=== PATIENT | female | born 1985 | race Caucasian/White ===

== ENCOUNTER 2016-11-01 16:51 | Emergency (ER) | payer MEDICAID ==
[~2016-11-01] VITALS: Ht 160 cm; Wt 44.5 kg
[~2016-11-01 16:51] MED LIST: DOCU100C37 PO; HYDR-2997 PO; IBP800T PO; IBUP-1780 PO; OXYC-465 PO
--- OUTSIDE RECORDS SUMMARY | 2016-11-01 16:55 | XMS REPORT ---
Author Author SARAN ARANDA [facility] Address [address] [place] [address] Care Team Providers Care Pulling Machine Operator Name Role Phone SARAN ARANDA Unavailable PROBLEMS Type Condition ICD9-CM Code [id number] Code Onset Dates Condition Status SNOMED Code Problem Surveillance of previously prescribed intrauterine contraceptive device V25.42 Active 002869899782981 Problem Rash and other nonspecific skin eruption 782.1 Active 657478814 Problem Moderate dysplasia of cervix 622.12 Active 901649180 Problem Screening examination for venereal disease V74.5 Active 764402986 Problem Screening for malignant neoplasm of the cervix V76.2 Active 868875989 Problem Unspecified vaginitis and vulvovaginitis 616.10 Active 065786217 Problem Cervical motion tenderness N94.9 Active 575510194 Problem PID (acute pelvic inflammatory disease) N73.0 Active 769674802 Problem Papanicolaou smear of cervix with high grade squamous intraepithelial lesion (HGSIL) 795.04 Active 371076037 Problem Unspecified pruritic disorder 698.9 Active 827059185 Problem Counseling on substance use and abuse V65.42 Active 071758572 Problem Nondependent tobacco use disorder 305.1 Active 006946539 ALLERGIES Substance Reaction Event Type Date Status Hydrocodone-Acetaminophen Unknown Drug Allergy Jan, Active Morphine Unknown Drug Allergy Jan, Active SOCIAL HISTORY No smoking Hx information available PLAN OF CARE VITAL SIGNS Height 62 in 2016-02-06 Weight 100.2 lbs 2016-02-06 Temperature 97.8 degrees Fahrenheit 2016-02-06 Heart Rate 70 bpm 2016-02-06 Respiratory Rate 18 2016-02-06 BMI 18.32 kg/m2 2016-02-06 Blood pressure systolic 106 mmHg 2016-02-06 Blood pressure diastolic 66 mmHg 2016-02-06 MEDICATIONS Medication Instructions Dosage Frequency Start Date End Date Duration Status Tramadol HCl 50 mg Orally every 6 hrs 1 tablet as needed 6h Jan, Active Bactrim DS 800-160 MG Orally Twice a day, voucher 1 tablet Jan, Jan, 10 day(s) Active RESULTS Name Result Date Reference Range UA LONG DIP (IN HOUSE) 2016-02-06 Lot # [id number] Exp date 2017 Clarity clear Color yellow Odor none GLU negative BETZAIDA negative KET negative SG 1.020 BLO 2+ pH 6.5 Protein 1+ URO 0.2 NIT negative ROBEL 1+ Lot # [id number] Exp date 2017 03 PROCEDURES Procedure Date Ordered Related Diagnosis Body Site URINALYSIS, AUTO, W/O SCOPE Feb 06, 2016 TORADOL (IM) 60 MG/2ML (UP TO 15 MG) Feb 06, 2016 Office Visit, Est Pt., Level 3 Feb 06, 2016 THER/PROPH/DIAG INJ, SC/IM Feb 06, 2016 IMMUNIZATIONS Vaccine Route Administration Date Status TORADOL (IM) 60 MG/2ML (UP TO 15 MG) IM Intramuscular Feb 06, 2016 Administered
[2016-11-01 17:03] VITALS: BP 121/80
--- NOTE | 2016-11-01 17:14 | ED General ---
General Chief Complaint: General Problems/Pain Stated Complaint: DEHRYDRATION Nursing Triage Note: AMB TO ROOM WITH PER EMS HAS BEEN WALKING AND THINKS SHE MAY BE DEHDRATION. PATIENT NOT WANTING IV STARTED ON ADMIT TO ROOM. Source of Information: Patient, EMS Exam Limitations: No Limitations History of Present Illness Time Seen by Provider: 17:00 Initial Comments 30 yo female patient presents to the ED via [facility] with c/o dehydration and sunburn. patient states she was walking from [place] to [place] when she got really hot and EMS had to be called. Patient reports drinking 2 20oz bottles of water today. Denies headache, N/V/D, abdominal pain, SOA. Patient reports using IV meth frequently and states she has other people "shoot me" with meth. Patient states her friends only get "two chances to inject me with dope. then we are done". Last used meth . Patient is very agitated, rude, and inappropriate with staff. Patient refuses to follow instructions and directions. Timing/Duration: Other (JPTA. Improved symptoms at this time.) Modifying Factors: improves with Other (Improved with the air conditioning of the ambulance.) Allergies and Home Medications Allergies Coded Allergies: hydrocodone (Verified Allergy, Intermediate, GI UPSET/DIZZY, 12/03/15) morphine (Unverified Allergy, Mild, HIVES, 11/17/08) latex (Verified Allergy, Unknown, 03/13/06) orange juice (Verified Allergy, Unknown, 03/13/06) Uncoded Allergies: ORANGES (Allergy, Mild, 11/17/08) Home Medications Ibuprofen 800 Mg Tablet, 800 MG PO Q6HR, #60 Prescribed by: NAYELI BOYD on 12/07/15 1529 Oxycodone HCl/Acetaminophen 1 Each Tablet, 1-2 TAB PO Q4H PRN for PAIN, #60 Prescribed by: NAYELI BOYD on 12/07/15 1529 Constitutional: No chills, No dizziness, other (fatigue) EENTM: no symptoms reported Respiratory: No cough, No dyspnea on exertion, No short of breath Cardiovascular: No chest pain, No palpitations, No syncope Gastrointestinal: No abdominal pain, No constipation, No diarrhea, No nausea, No vomiting Genitourinary: no symptoms reported Musculoskeletal: no symptoms reported Skin: see HPI, other (sunburn) Psychiatric/Neurological: Denies Headache, Denies Numbness, Denies Paresthesia , Denies Seizure, Denies Tingling, Denies Weakness All Other Systems Reviewed Negative Unless Noted: Yes (Negative excepted noted.) Past Hsjelnj-Rnaqui-Darkfh Hx Patient Social History Alcohol Use: Denies Use Recreational Drug Use: Yes Drug of Choice: METH LAST USED Smoking Status: Current Everyday Smoker Type Used: Cigarettes Recent Hopitalizations: Yes (HYSTERECTOMY 2WEEKS AGO) Immunizations Up To Date Tetanus Booster (TDap): Less than 5yrs PED Vaccines UTD: Yes Date of Influenza Vaccine: Dec 07, 2015 Seasonal Allergies Seasonal Allergies: No Surgeries History of Surgeries: Yes ( BX RIGHT BREAST, UMBIL HERNIA, LEEP, BMT'S) Surgeries: Abdominal, Adenoidectomy, Breast, Ear Surgery, Hysterectomy, Tonsillectomy Respiratory History of Respiratory Disorde: No Currently Using CPAP: No Currently Using BIPAP: No Cardiovascular History of Cardiac Disorders: No Neurological History of Neurological Disord: Yes Neurological Disorders: Neuropathy Reproductive System Hx Reproductive Disorders: Yes (HPV, CPP, UTERINE PROLAPSE, DUB) Sexually Transmitted Disease: No HIV/AIDS: No Female Reproductive Disorders: Menstrual Problems, Endometriosis, 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 Gastrointestinal History of Gastrointestinal Di: No Musculoskeletal History of Musculoskeletal Dis: Yes Musculoskeletal Disorders: Arthritis Endocrine History of Endocrine Disorders: No HEENT Loss of Vision: Denies Hearing Impairment: Denies Cancer History of Cancer: No Psychosocial History of Psychiatric Problem: Yes Behavioral Health Disorders: Anxiety, PTSD, Bipolar, Depression Integumentary History of Skin or Integumenta: No Blood Transfusions History of Blood Disorders: Yes (ANEMIA) Adverse Reaction to a Blood Tr: No (N/A) Reviewed Nursing Assessment Reviewed/Agree w Nursing PMH: Yes Family Medical History Significant Family History: No Pertinent Family Hx Physical Exam Vital Signs Vital Sign - Last 12Hours 11/01/ 17:03 Temp 97.6 Pulse 82 Resp 18 B/P (MAP) 121/80 Pulse Ox 100 O2 Delivery Room Air Capillary Refill : General Appearance: No Apparent Distress, WD/WN, Other (agitated, rude, inappropriate with staff. Patient noted to tell the RN to "fuck off!" when the RN attempts to start the IV.) HEENT: PERRL/EOMI, Pharynx Normal Neck: Normal Inspection, Supple Respiratory: Lungs Clear, Normal Breath Sounds, No Accessory Muscle Use, No Respiratory Distress Cardiovascular: Regular Rate, Rhythm, No Edema, No Murmur, Normal Peripheral Pulses Gastrointestinal: Normal Bowel Sounds, No Organomegaly, Non Tender, Soft Back: Normal Inspection Extremity: Normal Capillary Refill, Normal Range of Motion, Non Tender, Other ( numerous scabs and bruises noted on the BUE and BLE overlying veins in various stages of healing. ) Neurologic/Psychiatric: Alert, Oriented x3, No Motor/Sensory Deficits, blender operator II- XII Norm as Tested, Other (agitated, rude, inappropriate with ED staff. ) Skin: Normal Color, Warm/Dry, Other (numerous scabs and bruises noted on the BUE and BLE overlying veins in various stages of healing. ) Departure Communication (Admissions) Progress Notes patient seen and evaluated. Patient is agitated, rude and inappropriate with staff. Patient was asked multiple times to remain still while the IV was started. Patient refused to follow instruction and directions. I advised the patient multiple times that we were trying to help her and needed to start the IV to give her IVF's. Patient was noted to progressively become more agitated. Patient jerked the tourniquet off of her arm, grabbed her belongings, and stormed out of the emergency department. Impression Impression: Primary Impression: Left against medical advice Disposition: 07 AGAINST MEDICAL ADVICE Condition: Against Medical Advice Departure-Patient Inst. Referrals: NO,LOCAL PHYSICIAN (PCP) Primary Care Physician PATRICIO MANN Nov 01, 2016 17:14
== END 2016-11-01 17:03 | disposition left against medical advice (07) ==
LOC: EDUNIT# 16:51 → ER 16:52
DX: L55.9 Sunburn, unspecified (principal); E86.0 Dehydration; M19.90 Unspecified osteoarthritis, unspecified site; F41.9 Anxiety disorder, unspecified; F43.10 Post-traumatic stress disorder, unspecified; F31.9 Bipolar disorder, unspecified; F15.10 Other stimulant abuse, uncomplicated; F17.210 Nicotine dependence, cigarettes, uncomplicated; Z90.710 Acquired absence of both cervix and uterus; Z90.89 Acquired absence of other organs; Z87.19 Personal history of other diseases of the digestive system; Z98.890 Other specified postprocedural states; Z87.448 Personal history of other diseases of urinary system; X32.XXXA Exposure to sunlight, initial encounter
CPT/HCPCS: 99283

== ENCOUNTER 2018-01-12 09:02 | Emergency (ER) | payer SELFPAY ==
[~2018-01-12] VITALS: Ht 160 cm; Wt 49.9 kg
--- OUTSIDE RECORDS SUMMARY | 2018-01-12 09:07 | XMS REPORT ---
Author Author SARAN ARANDA Organization [facility] Address [address] [place] [address] Care Team Providers Care Bundle Shaker Name Role Phone SARAN ARANDA Unavailable PROBLEMS Type Condition ICD9-CM Code [id number] Code Onset Dates Condition Status SNOMED Code Problem IV drug abuse F19.10 Active Problem Bipolar 1 disorder F31.9 Active 603283917 ALLERGIES No Information ENCOUNTERS Encounter Location Date Diagnosis [facility] [id number] [place] [place] [address] Nov, [facility] [id number] [place] [address] Oct, [facility] [address], [place] [id number] Oct, Screen for STD (sexually transmitted disease) Z11.3 ; Unprotected sex Z72.51 ; Gum abscess K05.219 ; IV drug abuse F19.10 and Bipolar 1 disorder F31.9 [facility] [id number] [address] Aug, Intravenous drug abuse in remission F19.11 and High risk heterosexual behavior Z72.51 [facility] [id number] [place] [address] Aug, [facility] [address] [place] [phone] Mar, Sore throat J02.9 and Acute nasopharyngitis J00 [facility] [id number] [place] [address] Mar, Visit for TB skin test Z11.1 [facility] [id number] [place] [address] Mar, Visit for TB skin test Z11.1 [facility] [address] [place] [address] Mar, [facility] [id number] [address]98 [address] Mar, Dysuria R30.0 ; Cervical motion tenderness N94.9 ; PID ( acute pelvic inflammatory disease) N73.0 and Vaginal discharge N89.8 [facility] [id number] [address] Jan, Abdominal pain R10.9 and Acute cystitis with hematuria N30.01 [facility] [id number] [place] [address] May, [facility] [id number] [place] [address] 98539- 36[address] May, [facility] [id number] [place] [address] 18[address] 85[address] Jul, [facility] [id number] [place] [address] 44793- 9685 Mar, [facility] [id number] [place] [address] 93789- [address]651 Nov, [facility] [id number] [place] [address] 96915- 50[address] Nov, [facility] [id number] [place] [address] 58398- 5472 Nov, [facility] [id number] [place] [address] 22852- 5[address] Nov, [facility] [id number] [place] [address] 10546- 9770 Sep, [facility] [id number] [place] [address] 52779- 9521 Sep, [facility] [id number] [place] [address] 86040- 0232 Sep, [facility] [address] [facility] [id number] [address] Sep, IMMUNIZATIONS No Known Immunizations SOCIAL HISTORY Never Assessed REASON FOR VISIT lab// PLAN OF CARE VITAL SIGNS MEDICATIONS Unknown Medications RESULTS No Results PROCEDURES No Known procedures INSTRUCTIONS MEDICATIONS ADMINISTERED No Known Medications MEDICAL (GENERAL) HISTORY Type Description Date Medical History HPV (human papilloma virus) anogenital infection Medical History Cervical motion tenderness Medical History PID (acute pelvic inflammatory disease) Surgical History TVH with LSO 12/07/15
--- OUTSIDE RECORDS SUMMARY | 2018-01-12 09:07 | XMS REPORT ---
Author Author EMERALD POWERS Organization [facility] Address [address] [place] [address] Care Team Providers Care Real Estate Lawyer Name Role Phone EMERALD POWERS Unavailable PROBLEMS Type Condition ICD9-CM Code [id number] Code Onset Dates Condition Status SNOMED Code Problem Surveillance of previously prescribed intrauterine contraceptive device V25.42 Active 659407485244807 Problem Rash and other nonspecific skin eruption 782.1 Active 931965289 Problem Papanicolaou smear of cervix with high grade squamous intraepithelial lesion (HGSIL) 795.04 Active 659342391 Problem Screening for malignant neoplasm of the cervix V76.2 Active 748456775 Problem Screening examination for venereal disease V74.5 Active 114224723 Problem Counseling on substance use and abuse V65.42 Active 012415859 Problem PID (acute pelvic inflammatory disease) N73.0 Active 713544813 Problem Cervical motion tenderness N94.9 Active 829199092 Problem Moderate dysplasia of cervix 622.12 Active 823747974 Problem Unspecified pruritic disorder 698.9 Active 937524290 Problem Nondependent tobacco use disorder 305.1 Active 531993163 Problem Unspecified vaginitis and vulvovaginitis 616.10 Active 481362099 ALLERGIES Substance Reaction Event Type Date Status Hydrocodone-Acetaminophen Unknown Drug Allergy Mar, Active Morphine Unknown Drug Allergy Mar, Active SOCIAL HISTORY Never Assessed PLAN OF CARE Activity Details Follow Up prn Reason: VITAL SIGNS Height 62 in 2016-04-03 Weight 99.0 lbs 2016-04-03 Temperature 97.4 degrees Fahrenheit 2016-04-03 Heart Rate 92 bpm 2016-04-03 Respiratory Rate 18 2016-04-03 BMI 18.11 kg/m2 2016-04-03 Blood pressure systolic 110 mmHg 2016-04-03 Blood pressure diastolic 78 mmHg 2016-04-03 MEDICATIONS Medication Instructions Dosage Frequency Start Date End Date Duration Status Tramadol HCl 50 MG Orally every 6 hrs 1 tablet as needed 6h Mar, Mar, 5 days Active Doxycycline Hyclate 100 MG Orally every 12 hrs 1 capsule 12h Mar, Mar, 7 days Active Flagyl 500 MG Orally every 12 hrs 1 tablet 12h Mar, Mar, 7 days Active RESULTS Name Result Date Reference Range TRICHOMONAS (IN HOUSE) 2016-04-03 TRICHOMONAS negative Control + Lot # [id number] Exp date 2016-08 UA LONG DIP (IN HOUSE) 2016-04-03 Lot # [id number] Exp date 2017-03-18 Clarity clear Color dark yellow Odor none GLU negative BETZAIDA negative KET negative SG >=1.030 BLO trace-lysed pH 6.0 Protein negative URO 0.2 NIT negative ROBEL negative Lot # [id number] Exp date 2017-03 BACTERIAL VAGINOSIS (IN HOUSE) 2016-04-03 RESULTS negative Control + Lot # [id number] Exp date 2016-10 CULTURE, GENITAL 2016-04-03 Genital Culture, Routine Final report Result 1 GC/CHLAM PROBE (STATE) CHLAMYDIA GC PROCEDURES Procedure Date Ordered Result Body Site URINALYSIS, AUTO, W/O SCOPE Apr 03, 2016 ALVAREZ VAG, DNA, DIR PROBE Apr 03, 2016 No Charge Apr 03, 2016 LAB NOT BILLED BY [facility] Apr 03, 2016 IMMUNIZATIONS No Known Immunizations MEDICAL (GENERAL) HISTORY Type Description Date Surgical History TVH with LSO 12/07/15
--- OUTSIDE RECORDS SUMMARY | 2018-01-12 09:07 | XMS REPORT ---
Author Author ROBBY ALVES Organization [facility] Address [address] 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 and High risk heterosexual behavior Z72.51 [facility] [address] [address] Aug, [facility] [address] [address] Mar, Sore throat J02.9 and Acute nasopharyngitis J00 [facility] [address] [address] Mar, Visit for TB skin test Z11.1 [facility] [address] [address] Mar, 2016 Visit for TB skin test Z11.1 [facility] [address] [address] Mar, [facility] [address] [place] [phone] 16 Mar, 2016 Dysuria R30.0 ; Cervical motion tenderness N94.9 ; PID ( acute pelvic inflammatory disease) N73.0 and Vaginal discharge N89.8 [facility] [address] [address] [address] Jan, 2016 Abdominal pain R10.9 and Acute cystitis with hematuria N30.01 [facility] [id number] [address] 14 May, 2014 [facility] [address] [place] [address] May, [facility] [id number] [place] [phone] Jul, [facility] [address] [place] [address] Mar, [facility] [id number] [place] [address]- [address] Nov, [facility] [id number] [place] [address]- [address] Nov, [facility] [id number] [place] [address]- [address] Nov, [facility] [address] [place] [address] Nov, [facility] [id number] [place] [address] Sep, [facility] [address] [id number] Sep, [facility] [address] [phone] Sep, [facility] [address] [phone] Sep, IMMUNIZATIONS No Known Immunizations SOCIAL HISTORY Never Assessed REASON FOR VISIT Hep C/ HIV testing, Pt recently contacted by former boyfriend that he is positive for Hep C. He had hx of IVDU and also had a best friend that had AIDS. Pt desires Hep profile and HIV testing--gurpreet mcdonald PLAN OF CARE Activity Details Follow Up we will call Reason: VITAL SIGNS Height 62 in 2017-08-26 Weight 110 lbs 2017-08-26 Temperature 98.8 degrees Fahrenheit 2017-08-26 Heart Rate 100 bpm 2017-08-26 Respiratory Rate 16 2017-08-26 BMI 20.12 kg/m2 2017-08-26 Blood pressure systolic 112 mmHg 2017-08-26 Blood pressure diastolic 64 mmHg 2017-08-26 MEDICATIONS No Known Medications RESULTS No Results PROCEDURES No Known procedures INSTRUCTIONS MEDICATIONS ADMINISTERED No Known Medications MEDICAL (GENERAL) HISTORY Type Description Date Medical History HPV (human papilloma virus) anogenital infection Medical History Cervical motion tenderness Medical History PID (acute pelvic inflammatory disease) Surgical History TVH with LSO 12/07/15
--- OUTSIDE RECORDS SUMMARY | 2018-01-12 09:07 | XMS REPORT ---
Author Author EMERALD POWERS [facility] Address [address] [place] [address] Care Team Providers Care Fast Food Team Member Name Role Phone EMERALD POWERS Unavailable PROBLEMS Type Condition ICD9-CM Code [id number] Code Onset Dates Condition Status SNOMED Code Problem Surveillance of previously prescribed intrauterine contraceptive device V25.42 Active 273873189409028 Problem Rash and other nonspecific skin eruption 782.1 Active 886043458 Problem Papanicolaou smear of cervix with high grade squamous intraepithelial lesion (HGSIL) 795.04 Active 821877317 Problem Screening for malignant neoplasm of the cervix V76.2 Active 820014459 Problem Screening examination for venereal disease V74.5 Active 962686594 Problem Counseling on substance use and abuse V65.42 Active 410843317 Problem PID (acute pelvic inflammatory disease) N73.0 Active 815418847 Problem Cervical motion tenderness N94.9 Active 219850677 Problem Moderate dysplasia of cervix 622.12 Active 432914268 Problem Unspecified pruritic disorder 698.9 Active 987249343 Problem Nondependent tobacco use disorder 305.1 Active 423447960 Problem Unspecified vaginitis and vulvovaginitis 616.10 Active 753767361 ALLERGIES No Information SOCIAL HISTORY Never Assessed PLAN OF CARE VITAL SIGNS MEDICATIONS No Known Medications RESULTS No Results PROCEDURES No Known procedures IMMUNIZATIONS No Known Immunizations MEDICAL (GENERAL) HISTORY Type Description Date Surgical History TVH with LSO 12/07/15
--- OUTSIDE RECORDS SUMMARY | 2018-01-12 09:07 | XMS REPORT ---
Author Author RAMYA JOSEPH [facility] Address [address] [place] [address] Care Team Providers Care Nuclear Spectroscopist Name Role Phone JOSEPH RAMYA Unavailable PROBLEMS Type Condition ICD9-CM Code WRP05-MF Code Onset Dates Condition Status SNOMED Code Problem Surveillance of previously prescribed intrauterine contraceptive device V25.42 Active 585260912333712 Problem Rash and other nonspecific skin eruption 782.1 Active 499088392 Problem Papanicolaou smear of cervix with high grade squamous intraepithelial lesion (HGSIL) 795.04 Active 519944290 Problem Screening for malignant neoplasm of the cervix V76.2 Active 877682585 Problem Screening examination for venereal disease V74.5 Active 496641522 Problem Counseling on substance use and abuse V65.42 Active 031504670 Problem PID (acute pelvic inflammatory disease) N73.0 Active 543783685 Problem Cervical motion tenderness N94.9 Active 259004968 Problem Moderate dysplasia of cervix 622.12 Active 533166830 Problem Unspecified pruritic disorder 698.9 Active 605760456 Problem Nondependent tobacco use disorder 305.1 Active 738550454 Problem Unspecified vaginitis and vulvovaginitis 616.10 Active 740166707 ALLERGIES Substance Reaction Event Type Date Status Hydrocodone-Acetaminophen Unknown Drug Allergy Mar, Active Morphine Unknown Drug Allergy Mar, Active SOCIAL HISTORY Never Assessed PLAN OF CARE Activity Details Follow Up 48-72 hours Reason: VITAL SIGNS MEDICATIONS No Known Medications RESULTS No Results PROCEDURES Procedure Date Ordered Result Body Site TB INTRADERMAL 2016-04-15 Negative TB INTRADERMAL TEST Apr 15, 2016 IMMUNIZATIONS No Known Immunizations MEDICAL (GENERAL) HISTORY Type Description Date Surgical History TVH with LSO 12/07/15
--- OUTSIDE RECORDS SUMMARY | 2018-01-12 09:07 | XMS REPORT ---
Author Author EMERALD POWERS [facility] Address [address] [place] [address] Care Team Providers Care Link Trainer Teacher Name Role Phone EMERALD POWERS Unavailable PROBLEMS Type Condition ICD9-CM Code [id number] Code Onset Dates Condition Status SNOMED Code Problem Surveillance of previously prescribed intrauterine contraceptive device V25.42 Active 476040728012253 Problem Rash and other nonspecific skin eruption 782.1 Active 624393352 Problem Papanicolaou smear of cervix with high grade squamous intraepithelial lesion (HGSIL) 795.04 Active 819165786 Problem Screening for malignant neoplasm of the cervix V76.2 Active 948476022 Problem Screening examination for venereal disease V74.5 Active 486381309 Problem Counseling on substance use and abuse V65.42 Active 606281819 Problem PID (acute pelvic inflammatory disease) N73.0 Active 164727032 Problem Cervical motion tenderness N94.9 Active 939447400 Problem Moderate dysplasia of cervix 622.12 Active 049977513 Problem Unspecified pruritic disorder 698.9 Active 096248651 Problem Nondependent tobacco use disorder 305.1 Active 580161191 Problem Unspecified vaginitis and vulvovaginitis 616.10 Active 673488003 ALLERGIES Substance Reaction Event Type Date Status Hydrocodone-Acetaminophen Unknown Drug Allergy Mar, Active Morphine Unknown Drug Allergy Mar, Active SOCIAL HISTORY Never Assessed PLAN OF CARE Activity Details Follow Up prn Reason: VITAL SIGNS Height 62 in 2016-04-15 Weight 101.6 lbs 2016-04-15 Temperature 97.4 degrees Fahrenheit 2016-04-15 Heart Rate 100 bpm 2016-04-15 Respiratory Rate 20 2016-04-15 BMI 18.58 kg/m2 2016-04-15 Blood pressure systolic 122 mmHg 2016-04-15 Blood pressure diastolic 68 mmHg 2016-04-15 MEDICATIONS Medication Instructions Dosage Frequency Start Date End Date Duration Status Zyrtec Allergy 10 MG Orally Once a day 1 tablet 24h Mar, Apr, 30 day(s) Active Fluticasone Propionate 50 MCG/ACT Nasally Once a day 1 spray in each nostril 24h Mar, 30 day(s) Active RESULTS Name Result Date Reference Range STREP A (IN HOUSE) 2016-04-15 STREP A negative Control + Lot # [id number] Exp date nov 03 PROCEDURES Procedure Date Ordered Result Body Site STREP A ASSAY W/OPTIC Apr 15, 2016 IMMUNIZATIONS No Known Immunizations MEDICAL (GENERAL) HISTORY Type Description Date Surgical History TVH with LSO 12/07/15
--- OUTSIDE RECORDS SUMMARY | 2018-01-12 09:07 | XMS REPORT ---
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 and High risk heterosexual behavior Z72.51 [facility] [address] [place] [phone] Aug, [facility] [address] [place] [address] Mar, Sore throat J02.9 and Acute nasopharyngitis J00 [facility] [address] [place] [address] 28 Mar, 2016 Visit for TB skin test Z11.1 [facility] [address] [place] [id number] [place] [phone] 24 Mar, 2016 Visit for TB skin test Z11.1 [facility] [address] [place] [id number] [place] [phone] 22 Mar, 2016 [facility] [address] [place] [phone] 16 Mar, 2016 Dysuria R30.0 ; Cervical motion tenderness N94.9 ; PID ( acute pelvic inflammatory disease) N73.0 and Vaginal discharge N89.8 [facility] [address] [place] [id number] [place] [phone] Jan, Abdominal pain R10.9 and Acute cystitis with hematuria N30.01 [place] [address] [address] [facility] [id number] [place] [address] May, 2014 [facility] [address] [facility] [id number] [place] [address] May, [facility] [address] [facility] [id number] [place] [address] Jul, [facility] [address] [facility] [id number] [place] [address] Mar, [facility] [address] [facility] [id number] [place] [address] Nov, [facility] [id number] [address] Nov, [facility] [id number] [address] Nov, [facility] [id number] [address] Nov, [facility] [id number] [address] Sep, [facility] [id number] [place] [id number] Sep, [facility] [id number] [address] Sep, [facility] [id number] [place] [address] Sep, IMMUNIZATIONS No Known Immunizations SOCIAL HISTORY Never Assessed REASON FOR VISIT Phone call/Appt scheduled PLAN OF CARE VITAL SIGNS MEDICATIONS No Known Medications RESULTS No Results PROCEDURES No Known procedures INSTRUCTIONS MEDICATIONS ADMINISTERED No Known Medications MEDICAL (GENERAL) HISTORY Type Description Date Medical History HPV (human papilloma virus) anogenital infection Medical History Cervical motion tenderness Medical History PID (acute pelvic inflammatory disease) Surgical History TVH with LSO 12/07/15
--- OUTSIDE RECORDS SUMMARY | 2018-01-12 09:07 | XMS REPORT ---
Author Author RAMYA JOSEPH [facility] Address [address] [place] [address] Care Team Providers Care Network Coordinator Name Role Phone JOSEPH RAMYA Unavailable PROBLEMS Type Condition ICD9-CM Code [id number] Code Onset Dates Condition Status SNOMED Code Problem Surveillance of previously prescribed intrauterine contraceptive device V25.42 Active 819523210225694 Problem Rash and other nonspecific skin eruption 782.1 Active 054334297 Problem Papanicolaou smear of cervix with high grade squamous intraepithelial lesion (HGSIL) 795.04 Active 814177337 Problem Screening for malignant neoplasm of the cervix V76.2 Active 227961477 Problem Screening examination for venereal disease V74.5 Active 844577330 Problem Counseling on substance use and abuse V65.42 Active 631425589 Problem PID (acute pelvic inflammatory disease) N73.0 Active 046261066 Problem Cervical motion tenderness N94.9 Active 480405414 Problem Moderate dysplasia of cervix 622.12 Active 250733870 Problem Unspecified pruritic disorder 698.9 Active 521040601 Problem Nondependent tobacco use disorder 305.1 Active 548588267 Problem Unspecified vaginitis and vulvovaginitis 616.10 Active 014973543 ALLERGIES No Information SOCIAL HISTORY Never Assessed PLAN OF CARE Activity Details Follow Up 48-72 hours Reason: VITAL SIGNS MEDICATIONS No Known Medications RESULTS No Results PROCEDURES Procedure Date Ordered Result Body Site TB INTRADERMAL 2016-04-11 N/A TB INTRADERMAL TEST Apr 11, 2016 IMMUNIZATIONS No Known Immunizations MEDICAL (GENERAL) HISTORY Type Description Date Surgical History TVH with LSO 12/07/15
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
[2018-01-12 11:53] VITALS: BP 146/83
== END 2018-01-12 11:49 | disposition home or self-care (01) ==
LOC: ER 09:02 → EDUNIT# 09:02 → ER 11:49
DX: T71.9XXA Asphyxiation due to unspecified cause, initial encounter (principal); F41.9 Anxiety disorder, unspecified; B19.20 Unspecified viral hepatitis C without hepatic coma; F15.10 Other stimulant abuse, uncomplicated; F17.210 Nicotine dependence, cigarettes, uncomplicated; Z88.5 Allergy status to narcotic agent; Z91.040 Latex allergy status; Z90.89 Acquired absence of other organs; Z90.710 Acquired absence of both cervix and uterus; Z86.19 Personal history of other infectious and parasitic diseases; Z87.448 Personal history of other diseases of urinary system
CPT/HCPCS: 70450; 72125